=== PATIENT | female | born 2000 | race American Indian/Alaskan Native ===

== ENCOUNTER 2021-05-19 10:42 | Inpatient (IN) | payer MEDICAID ==
[2021-05-19] MEDS ORDERED: LACTATED RINGERS 1,000 ML IV ONE (11:14)
[2021-05-19] MEDS ORDERED: LIDOCAINE (2%) 20 MG/1 ML VIAL 20 ML MDV INFILTRATI NR (13:22)
[2021-05-19] MEDS ORDERED: OXYTOCIN 10 UNIT/1 ML INJ IM PRN (13:22)
[2021-05-19] MEDS ORDERED: AMPICILLIN/NS 2 GM/100 ML 2 GM/100 ML BAG IV ONE (13:22)
[2021-05-19] MEDS ORDERED: TERBUTALINE 1 MG/1 ML INJ SUB-Q PRN (13:22)
[2021-05-19] MEDS ORDERED: ONDANSETRON 4 MG/2 ML INJ IV PRN (13:22)
[2021-05-19] MEDS ORDERED: METHYLERGONOVINE MALEATE 0.2 MG/ML VIAL IM PRN (14:00)
[2021-05-19] MEDS ORDERED: ePHEDrine SULFATE 50 MG/1 ML INJ IV PRN (14:00)
[2021-05-19] MEDS ORDERED: OXYTOCIN DRIP 30 UNITS/500 ML BAG IV SCH (14:00)
[2021-05-19] MEDS ORDERED: CARBOPROST TROMETHAMINE 250 MCG/1 ML INJ IM PRN (14:00)
[2021-05-19] MEDS ORDERED: LACTATED RINGERS 1,000 ML IV SCH (14:00)
[2021-05-19] MEDS ORDERED: NalbUPHINE 10 MG/1 ML INJ IV PRN (14:00)
[2021-05-19] MEDS ORDERED: miSOPROStol 200 MCG TAB PR PRN (14:00)
[2021-05-19] MEDS ORDERED: LOPERAMIDE 2 MG CAP PO PRN (14:00)
[2021-05-19] MEDS ORDERED: ACETAMINOPHEN 325 MG TAB PO PRN (14:00)
[2021-05-19] MEDS ORDERED: BUTORPHANOL 2 MG/1 ML INJ IV PRN (14:00)
[2021-05-19] MEDS ORDERED: fentaNYL 100 MCG/2 ML INJ IV PRN (14:00)
[2021-05-19 14:03] LABS: Hematocrit 26.1 % (30.3-42.9)
--- NOTE | 2021-05-19 14:09 | History and Physical Report ---
History of Present Illness Date of examination: 05/19/21 Date of admission: 05/19/21 13:22 Chief complaint: Leaking fluids since 05/18/21 @ 2200 History of present illness: 20yo, G1 @ 36.4 wks, initiated care with [facility] Store[facility] at 16.2 wks gestation. Her has been complicated by late entry to [facility], UTI and pyelonephritis. Presents to [facility] today with reports of ctxs and leaking fluid since last night around 2200. ROM plus was positive. Reports +FM. Denies any VB. Labs: O+, antibody negative; PAP smear normal; rubella immune; VDRL non-reactive; HBsAg negative; HIV negative; Hep C negative; HSV2 negative; GC/Chlamydia/Trichomonas negative; 1 hr gtt 79; GBS negative. Past History Past Medical History: no pertinent history Past Surgical History: no surgical history Family/Genetic History: none Social history: single, full code. denies: smoking, alcohol abuse, prescription drug abuse, IV drug use - Obstetrical History Expected Date of Delivery: 06/12/21 Actual Gestation: 36 Week(s) 4 Day(s) : 1 Para: 0 Hx # Term Pregnancies: 0 Number of Pregnancies: 0 Spontaneous Abortions: 0 Induced : 0 Number of Living Children: 0 Medications and Allergies Allergies Allergy/AdvReac Type Severity Reaction Status Date / Time No Known Allergies Allergy Unverified 05/17/21 15:38 Home Medications Medication Instructions Recorded Confirmed Last Taken Type Ferrous Sulfate [Feosol 325 MG tab] 1 tab PO DAILY 05/17/21 05/17/21 05/17/21 13:30 History cephALEXin [Keflex] 500 mg PO Q12HR #40 cap 05/18/21 Unknown Rx Active Meds: Active Medications Acetaminophen (Acetaminophen 325 Mg Tab) 650 mg PO Q4H PRN PRN Reason: Pain, Mild (1-3) Betamethasone Acet/Betameth SodPhos (Betamet Acet/Betamet Na Ph 6 Mg/Ml Inj 5 Ml Mdv) 12 mg IM Q24H OLINDA Stop: 05/20/21 15:01 Butorphanol Tartrate (Butorphanol 2 Mg/1 Ml Inj) 2 mg IV Q2H PRN PRN Reason: Pain , Severe (7-10) Carboprost Tromethamine (Carboprost Tromethamine 250 Mcg/1 Ml Inj) 250 mcg IM ONCE PRN PRN Reason: Uterine Bleeding Ephedrine Sulfate (Ephedrine Sulfate 50 Mg/1 Ml Inj) 10 mg IV Q2M PRN PRN Reason: Hypotension Fentanyl (Fentanyl 100 Mcg/2 Ml Inj) 100 mcg IV Q2H PRN PRN Reason: Pain,Severe (7-10) LABOR PAIN Lactated Ringer's (Lactated Ringers) 1,000 mls @ 125 mls/hr IV DIRECT OLINDA Oxytocin/Sodium Chloride (Pitocin/Ns 30 Unit/500ml) 30 units in 500 mls @ 40 mls/hr IV TITR OLINDA; Protocol Ampicillin Sodium (Ampicillin/Ns 2 Gm/100 Ml) 2 gm in 100 mls @ 100 mls/hr IV ONCE ONE; Protocol Stop: 05/19/21 14:21 Ampicillin Sodium (Ampicillin/Ns 1 Gm/50 Ml) 1 gm in 50 mls @ 100 mls/hr IV Q4H OLINDA; Protocol Lidocaine (Lidocaine (2%) 20 Mg/1 Ml Vial 20 Ml Mdv) 20 ml INFILTRATI ONCE NR Stop: 05/19/21 20:00 Loperamide HCl (Loperamide 2 Mg Cap) 2 mg PO ONCE PRN PRN Reason: give with Hemabate Methylergonovine Maleate (Methylergonovine Maleate 0.2 Mg/Ml Vial) 0.2 mg IM ONCE PRN PRN Reason: Uterine Bleeding Mineral Oil (Mineral Oil 30 Ml Oral Liqd) 30 ml PO QHS PRN PRN Reason: Constipation Misoprostol (Misoprostol 200 Mcg Tab) 800 mcg OH ONCE PRN PRN Reason: Uterine Bleeding Nalbuphine HCl (Nalbuphine 10 Mg/1 Ml Inj) 10 mg IV Q2H PRN PRN Reason: Pain, Moderate (4-6) Ondansetron HCl (Ondansetron 4 Mg/2 Ml Inj) 4 mg IV Q8H PRN PRN Reason: Nausea And Vomiting Oxytocin (Oxytocin 10 Unit/1 Ml Inj) 10 unit IM ONCE PRN PRN Reason: Uterine Bleeding Terbutaline Sulfate (Terbutaline 1 Mg/1 Ml Inj) 0.25 mg SUB-Q ONCE PRN PRN Reason: Hyperstimulation/Hypertonicity Review of Systems All systems: negative Genitourinary: leakage of fluid, contractions - Vital Signs Vital signs: Vital Signs Pulse BP 96 H 118/75 04/14/22 11:10 05/19/21 11:10 Temp Pulse Resp BP Pulse Ox 98.1 F 103 H 20 118/75 99 05/19/21 11:12 05/19/21 14:02 05/19/21 11:12 05/19/21 11:12 05/19/21 14:02 - Physical Exam Breasts: Positive: normal Cardiovascular: Regular rate Lungs: Positive: Normal air movement Abdomen: Positive: other (gravid) Uterus: Positive: enlarged (S=D) Extremities: Positive: normal Deep Tendon Reflex Grade: Normal +2 - Obstetrical FHR: category 1 Uterine Contraction Monitor Mode: External Cervical Dilatation: 2.5 (per RN) Cervical Effacement Percentage: 70 station: -2 Uterine Contraction Pattern: Irregular Uterine Tone Measurement Phase: Resting Uterine Contraction Intensity: Mild Results Result Diagrams: 05/19/21 13:24 Abnormal lab results 05/19/21 05/19/21 Range/Units 13:24 Unknown Hgb 9.0 L (10.1-14.3) gm/dl Hct 26.1 L (30.3-42.9) % Membranes Rupture Positive A (Negative) All other labs normal. Assessment and Plan - Patient Problems (1) SROM (spontaneous rupture of membranes) Current Visit: Yes Status: Acute Plan to address problem: Admit to L&D Betamethasone 12MG IM @ 24hr x 2 doses Pain meds as desired per orders Closely monitor maternal/ status (2) Pyelonephritis affecting in third trimester Current Visit: Yes Status: Acute Plan to address problem: IV Abts as ordered (3) GBS screening not performed Current Visit: Yes Status: Acute Plan to address problem: Initiate GBS prophylaxis
[2021-05-19] MEDS ORDERED: BETAMET ACET/BETAMET NA PH 6 MG/ML INJ 5 ML MDV IM SCH (15:00)
[2021-05-19] MEDS ORDERED: AMPICILLIN/NS 1 GM/50 ML 1 GM/50 ML BAG IV SCH (18:00)
[2021-05-19] MEDS ORDERED: MINERAL OIL 30 ML ORAL LIQD PO PRN (22:00)
[2021-05-20] MEDS ORDERED: LIDOCAINE (2%) 20 MG/1 ML VIAL 20 ML MDV INFILTRATI ONE (02:37)
--- NOTE | 2021-05-20 02:53 | Procedure Note ---
OB Delivery Note - Delivery Date of Delivery: 05/20/21 Heat Reader: PHYLLIS SAINI Estimated blood loss: <100cc - Vaginal Delivery presentation: vertex Delivery position: OA (LOVE) Intrapartum events: labor-<37 weeks, PROM->1hr before delivery, extend. bradycardia Delivery monitor: external FHT, external uterine Route of delivery: Delivery placenta: spontaneous Delivery cord: nuchal cord, 3 umbilical vessels Episiotomy: none Delivery laceration: 1st degree Anesthesia: none Delivery comments: Called to room urgently to assist with , patient C/C/+3 and pushing spontaneously with ctx. FHT noted between 70-85 while . 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 Infant delivered LOVE, 3 vessel cord clamped and cut. Cord blood collected. Placenta delivered spontaneously and complete - sent to pathology. 1st degree lac noted hemostatic, reviewed options with patient to repair or allow to heal without suturing - pt requested no repair. EBL 75, apgars 7/9, wt 5#11oz. All counts correct, mother and infant LDR stable. - Infant A at 1 minute: 7 at 5 minutes: 9 Gender: Female (5#11oz "Nirvana")
[2021-05-20] MEDS ORDERED: MAGNESIUM HYDROXIDE (MOM) ORAL LIQD UDC PO PRN (03:17)
[2021-05-20] MEDS ORDERED: PROMETHAZINE 25 MG TAB PO PRN (03:17)
[2021-05-20] MEDS ORDERED: LANOLIN/ZINC/DIMETHICONE (LANSINOH) 7 GM TP PRN (03:17)
[2021-05-20] MEDS ORDERED: diphenhydrAMINE 25 MG CAP PO PRN (03:17)
[2021-05-20] MEDS ORDERED: WITCH HAZEL/ GLYCERIN PAD TP PRN (03:17)
[2021-05-20] MEDS: IBUPROFEN 800 MG TAB PO SCH ×3 (10:01→23:11)
[2021-05-20] MEDS: cephALEXin 500 MG CAP PO SCH ×2 (10:01→23:11)
[2021-05-20] MEDS: PRENATAL VIT27-FE FUMARATE-FOLIC ACID VIT TAB PO SCH (10:02)
[2021-05-20 18:13] LABS: Hematocrit 26.9 % (30.3-42.9)
[2021-05-21] MEDS: IBUPROFEN 800 MG TAB PO SCH ×3 (09:43→15:44)
[2021-05-21] MEDS: PRENATAL VIT27-FE FUMARATE-FOLIC ACID VIT TAB PO SCH (09:44)
[2021-05-21] MEDS: cephALEXin 500 MG CAP PO SCH (09:44)
--- NOTE | 2021-05-21 14:19 | Discharge Summary ---
Providers - Providers Date of Admission: 05/19/21 13:22 Date of discharge: 05/21/21 Attending physician: CHIDI KAUR 05/20/21 03:19 Consult to Advertising Operations Manager [CONS] Routine Reason For Exam: assistance with , SNS Primary care physician: CHIDI KAUR Hospitalization Reason for admission: labor Delivery: Episiotomy: none Laceration: 1st degree (healing as expected) Other procedures: none complications: none Discharge diagnosis: delivery (36.5 weeks gestation) baby: female Hospital course: 20yo, G1 @ 36.4 wks, initiated care with [place] [facility] Feeder [facility] at 16.2 wks gestation. Her has been complicated by late entry to [facility], UTI and pyelonephritis. Presents to [facility] today with reports of ctxs and leaking fluid since last night around 2200. ROM plus was positive. Reports +FM. Denies any VB. Delivered viable female infant via . course has been uncomplicated. Discharge criteria met on PPD#1. Condition at discharge: Good Disposition: 01 HOME / SELF CARE / HOMELESS - Discharge Diagnoses (1) Pyelonephritis affecting in third trimester Status: Acute (2) spontaneous labor with delivery Status: Acute Qualifiers: Fetus number: single or unspecified fetus Qualified Code(s): O60.10X0 - labor with delivery, unspecified trimester, not applicable or unspecified (3) Anemia Status: Acute Qualifiers: Anemia type: iron deficiency Comment: Asymptomatic Increase iron rich foods into diet Plan - Discharge Medications Prescriptions: cephALEXin [Keflex] 500 mg PO Q12HR 7 Days #14 capsule Ibuprofen [Motrin 800 MG tab] 800 mg PO Q8HR #30 tablet - Provider Discharge Summary Activity: routine, no sex for 6 weeks, no heavy lifting 4 weeks, no strenuous exercise Diet: other (Iron rich diet) Instructions: routine Additional instructions: [] Smoking cessation referral if applicable(refer to patient education folder for contact #) [] Refer to [facility] Booklet Call your doctor immediately for: * Fever > 100.5 * Heavy vaginal bleeding ( >1 pad per hour) * Severe persistent headache * Shortness of breath * Reddened, hot, painful area to leg or breast * Drainage or odor from incision. * Keep laceration site clean and dry at all times and follow doctor's instructions regarding bathing/showering - Follow up plan Follow up: CHIDI KAUR MD [Primary Care Provider] - 6 Weeks
[2021-05-21] MEDS ORDERED: TETANUS,DIPH,PERTUSS(ACELL) VACCINE 0.5 ML SYRINGE IM ONE (16:47)
[2021-05-21 17:07] VITALS: BP 106/76
== END 2021-05-21 17:44 | disposition home or self-care (01) | DRG 774 ==
LOC: APU 10:42 → TRG 10:42 → APU 13:22 → TRG 13:50 → LD 16:03 → OB 05-20 05:43
PROVIDERS: ADMIT Obstetrics & Gynecology; ATTEND Obstetrics & Gynecology
PROC: 10E0XZZ Delivery of Products of Conception, External Approach (ICD-10-PCS; principal; 2021-05-20)
PROC: 3E0234Z Introduction of Serum, Toxoid and Vaccine into Muscle, Percutaneous Approach (ICD-10-PCS; 2021-05-21)
DX: O60.14X0 Preterm labor third trimester with preterm delivery third trimester, not applicable or unspecified (principal); O75.3 Other infection during labor; Z3A.36 36 weeks gestation of pregnancy; Z37.0 Single live birth; Z23 Encounter for immunization; O76 Abnormality in fetal heart rate and rhythm complicating labor and delivery; O42.013 Preterm premature rupture of membranes, onset of labor within 24 hours of rupture, third trimester; O69.81X0 Labor and delivery complicated by cord around neck, without compression, not applicable or unspecified; O70.0 First degree perineal laceration during delivery; O90.81 Anemia of the puerperium; O23.03 Infections of kidney in pregnancy, third trimester
CPT/HCPCS: 36415; 59025; 84112; 85014; 85018; 86850; 86900; 86901; 90471; 90715; 96361; G0378; J0290; J0702; J7120